=== PATIENT | female | born 1970 | race Caucasian/White ===

== ENCOUNTER 2022-04-17 17:14 | Observation (INO) | payer OTHER, SELFPAY ==
[2022-04-17] VITALS (9 sets, daily range): BP systolic 108–152; BP diastolic 54–66; PULSE 74–98; RESP 15–18; TEMP 35.9–36.9; O2SAT 99–100; BMI 24.3; BMI 24.9
--- NOTE | 2022-04-17 17:36 | EDS_ITS ---
HPI HPI - Female History of Present Illness Chief Complaint: Vag Bleeding Detail of Chief Complaint: For 3 to 4 weeks. Now pale and tired. Informant: patient and spouse/S.O. Bleeding Issue: Positive for Vaginal bleeding and Passing clots Onset: Weeks Context: Gradual Onset Timing: Intermittent Current Severity: Similar to period Associated Symptoms Associated Symptoms: Negative for Dysuria or Frequency Test: Positive P: 7 Ab: 0 Narrative Narrative: 51-year-old [facility] female no seen past medical history. G7, P7 Ab0. With 4 prior C-sections. States that she has been having heavier than normal vaginal bleeding for the last 3 to 4 weeks. Had an abnormal menstrual period before that and irregular periods or lack of periods for the last 3 months. Denies any discharge. No fever. She has never needed a blood transfusion. Prior similar symptoms: No Recent Illness/Hospitalization: No PFSH PFSH Medical History no medical history no medical history Home Medications NK 04/17/22 [History Last Taken Unknown] Allergy/AdvReac Type Severity Reaction Status Date / Time No Known Allergies Allergy Verified 04/17/22 17:15 Social History Smoking Status: Never smoker ROS ROS ED ROS Narrative Help. Tired. Intermittent dyspnea. Review of Systems ROS Unobtainable: Denies due to encephalopathy Constitutional Constitutional ED: Denies chills or fever(s) Eyes Eyes: Denies blurry vision ENT ENT ED: Denies ear pain Cardiovascular Cardiovascular: Denies chest pain Respiratory/Chest Respiratory/Chest: Denies cough or dyspnea Gastrointestinal Gastrointestinal: Denies abdominal pain Genitourinary Genitourinary ED: Denies dysuria or hematuria Musculoskeletal Musculoskeletal: Denies arthralgias Integumentary Denies abscess or Abrasions Neurologic Neurologic: Reports headache(s) Psychiatric Psychiatric: Denies anxiety Endocrine Endocrinology: Denies heat intolerance Hematologic/Lymphatic Hematologic/Lymphatic: Denies easy bleeding, easy bruising or lymphadenopathy Allergic/Immunologic Allergic/Immunologic ED: Denies mouth swelling or tongue swelling EXAM Physical Exam Narrative Exam Narrative: 51-year-old female. Vital signs stable afebrile. No acute distress. at bedside. She does clinically appear pale. H EENT exam unremarkable. Pelvic somatic. Moist. Neck nontender no lymphadenopathy. Lungs clear to auscultati on. Heart regular rhythm rate about 90 no murmur. Chest wall nontender. Abdomen soft nontender. Moving all 4 extremities. Skin pale. No petechiae or purpura. No rashes. Back nontender. Neurologic exam normal. Const Vital Signs: 04/17/22 17:15 Temperature 96.6 F L Temperature Source Temporal Pulse Rate 98 Respiratory Rate 18 Blood Pressure 152/65 H Blood Pressure Mean 94 Pulse Ox 100 Oxygen Delivery Method Room Air Positive well nourished and well developed; Negative for obese, cachectic, contractures or unkempt General Appearance ED: well developed and NAD; Negative for unkempt, cachectic, contractures or odor of alcohol detected Nutritional Appearance: Negative for cachectic or obese HEENT Reports moist mucous membranes; Denies dry mucous membranes Negative for trauma or tenderness Mouth ED: No dry mucous membranes Mouth: No dry mucous membranes Eyes PERRL and EOMs intact bilaterally General Eye ED: Yes pale conjunctiva; Negative for scleral icterus Neck no lymphadenopathy, supple and no JVD General: Negative for other Thyroid: Negative for tender Lymph Lymphatic: Negative for other Chest Wall inspection of chest normal and palpation of chest normal Chest: Negative for other Resp normal respiratory effort and clear to auscultation bilaterally Effort and Inspection: Negative for pain with movement Auscultation: Negative for rales, rhonchi or wheezes Cardio regular rate, regular rhythm, S1 normal heart sound, no murmurs and no JVD Rate: Negative for bradycardia or tachycardic Rhythm: Negative for abnormal rhythm GI normal to inspection, nondistended, normoactive bowel sounds, soft to palpation, non-tender, non-distended and no masses Auscultation: normoactive bowel sounds Palpation: Negative for tender or guarding Back/Spine no CVA tenderness General Back: Negative for CVA tenderness Cervical Spine: Negative for cervical spine tenderness Thoracic Spine / Upper Back: Negative for thoracic spinal tenderness Lumbar Spine / Lower Back: Negative for lumbar spinal tenderness Sacrum: Negative for other Extremity normal to inspection and full ROM General Extremety ED: Negative for edema or tenderness General Extremity: Negative for edema Neuro oriented x3, CN's II-XII intact bilaterally and no sensory deficits noted Sensorium / Orientation: alert, oriented to person, oriented to place and oriented to time; Negative for confused, lethargic or stuporous Motor Exam: strength 5/5 throughout Psych mental status grossly normal Appearance: Negative for unkempt Attitude: No agitated Speech: No other MDM MDM MDM Narrative Medical decision making narrative: 51-year-old female with vaginal bleeding for 3 to 4 weeks clinically looks pale. Concern for anemia due to vaginal bleeding. Blood count electrolytes to be obtained. IV placed. She will be typed and screened in case she is anemic and may need transfused. Repeat exam patient is doing well at 6:35 PM. I discussed all test results with her and her . They are comfortable with the admission. And a transfusi on. I spoke to TRANSCRIPT CLERK physician on-call Dr. Erendira Hernadez. Patient be transfused 2 units. She will meet the patient to her service. Most likely get an ultrasound and do further evaluation. Lab Data Attestation: I reviewed the patient's lab results. Lab results narrative: CBC shows a white count 3.7. H&H of 4.6 and 17.1. Significant anemia. Electrolytes unremarkable gap of 5 normal BUN of 12 creatinine 0.7. Glucose 103. Serum test negative. She has been typed and crossed for 4 u nits. She will be transfused 2 units. Labs: Laboratory Results - last 24 hr 04/17/22 04/17/22 04/17/22 17:45 17:45 17:45 WBC 3.7 L RBC 2.57 L Hgb 4.6 L* Hct 17.1 L MCV 66.5 L MCH 17.9 L MCHC 26.9 L RDW Std Deviation 44.1 H RDW Coeff of Melissa 18.3 H Plt Count 297 MPV 9.3 Sodium 140 Potassium 3.9 Chloride 110 H Carbon Dioxide 25.0 Anion Gap 5 BUN 12 Creatinine 0.78 Estim Creat Clear Calc 82.98 Est GFR (MDRD) Af Amer 100 Est GFR (MDRD) Non-Af 83 BUN/Creatinine Ratio 15.4 Glucose 103 Calcium 8.5 Serum , Qual NEGATIVE Crossmatch 04/17/22 17:45 WBC RBC Hgb Hct MCV MCH MCHC RDW Std Deviation RDW Coeff of Melissa Plt Count MPV Sodium Potassium Chloride Carbon Dioxide Anion Gap BUN Creatinine Estim Creat Clear Calc Est GFR (MDRD) Af Amer Est GFR (MDRD) Non-Af BUN/Creatinine Ratio Glucose Calcium Serum , Qual Crossmatch See Detail Discharge Plan Triage Chief Complaint: Vag Bleeding ED Provider: Marroquin,Ranulfo Dx/Rx/DC Orders Clinical Impression: Abnormal vaginal bleeding, Anemia requiring transfusions Prescriptions: No Action NK Primary Care Provider: Cristino White Referrals: Cristino White DO [Primary Care Provider] - Disposition Disposition: Acute Care Hospital [facility]
[2022-04-17 18:00] LABS: Hematocrit 17.1 % (37-47); Mean Corp Hgb Conc 26.9 g/dL (32-36); Mean Corpuscular Hgb 17.9 pg (27.0-32.0); Mean Corpuscular Volume 66.5 fL (81-99); Mean Platelet Vol. 9.3 fl (6.2-12.0); POSITIVE COUNT YES; Platelet Count 297 K/mm3 (150-450); RBC Distribution Width CV 18.3 % (11.6-14.6); RBC Distribution Width SD 44.1 fl (35.1-43.9); Red Blood Count 2.57 M/mm3 (4.2-5.4); White Blood Count 3.7 K/mm3 (4.4-11.0)
[2022-04-17 18:11] LABS: Internal QC Validated? YES +Cl - CLEAR BKGD; Pregnancy, Serum, hCG Quali. NEGATIVE Negative
[2022-04-17 18:15] LABS: Anion Gap 5 (5-15); BUN 12 mg/dL (7-18); BUN/Creat Ratio 15.4 RATIO (10-20); Calcium,Total 8.5 mg/dL (8.5-10.1); Chloride 110 mmol/L (98-107); Creatinine, Serum 0.78 mg/dL (0.55-1.02); EST Glomerular Filtration Rate 83 mL/min (>60); Est Glom Filt Rate - Afr Amer 100 mL/min (>60); Estimated Creatinine Clearance 82.98 ml/min; Glucose 103 mg/dL (74-106); Hemoglobin 4.6 g/dL (12.0-15.0); Potassium 3.9 mmol/L (3.5-5.1); Scan Indicated on CBC? Y/N YES- FLAGS NOTED; Sodium Level 140 mmol/L (136-145)
[2022-04-17 18:56] LABS: Differential Comment SCANNED
--- NOTE | 2022-04-17 21:18 | PCM.HP.OB ---
HPI - General General Date of Admission: 04/17/22 Date of Service: 04/17/22 Chief Complaint: vaginal bleeding HPI Narrative LAUREN MEZA, is a 51 F who presents to the ER with vaginal bleeding. 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 She began having irregular menstrual cycles over the last 6 to 12 months. Over the last 1 month she noted daily heavy bleeding. 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 She states what brought her into the ER is that her daughter came over to visit carlos noticed that she was pale, and therefore instructed her to go to the ER. She denies any lightheadedness or dizziness. She recently has had off-and-on headaches. She also notes occasional shortness of breath on exertion. No chest pain or leg pain. Some cramping but no abdominal or pelvic pain. She is unsure about Pap smear history. She denies a history of prior gynecologic surgery. She states she has had 4 sections and 3 vaginal deliveries. She denies a history of uterine fibroids or polyps. PFSH PFSH Medical History no medical history Home Medications NK 04/17/22 [History Last Taken Unknown] Allergy/AdvReac Type Severity Reaction Status Date / Time No Known Allergies Allergy Verified 04/17/22 19:54 Surgical History (Updated 04/17/22 @ 19:54 by Evelyn Vines) Hx of cholecystectomy Social History Smoking Status: Never smoker Vital Signs Vital Signs Vital Signs: 04/17/22 17:15 04/17/22 20:17 04/17/22 20:31 Temperature 96.6 F L 98.4 F 98.4 F Temperature Source Temporal Oral Oral Pulse Rate 98 78 78 Respiratory Rate 18 16 16 Blood Pressure 152/65 H 117/66 117/66 Blood Pressure Mean 94 83 83 Blood Pressure Source Monitor Monitor Blood Pressure Position Semi-Fowlers Semi-Fowlers Blood Pressure Location Left Arm Left Arm Pulse Ox 100 100 100 Oxygen Delivery Method Room Air Room Air Room Air 04/17/22 20:46 Temperature 98.0 F Temperature Source Oral Pulse Rate 76 Respiratory Rate 15 Blood Pressure 120/65 Blood Pressure Mean 83 Blood Pressure Source Monitor Blood Pressure Position Supine Blood Pressure Location Left Arm Pulse Ox 100 Oxygen Delivery Method Room Air Weight Weight: 156 lb 15.506 oz Body Mass Index (BMI) 24.9 Physical Exam Const alert and no apparent distress Constitutional Narrative: Pale General Appearance: comfortable HEENT normocephalic Resp normal respiratory effort GI soft to palpation, non-tender and non-distended GI Narrative: Uterus palpated to be enlarged and about 17-18 week sized Narrative: Scant dark red blood on pad and no active bleeding Labs Labs Labs: Blood Type A NEGATIVE Antibody Screen NEGATIVE Hct 17.1 % (37-47) L Hgb 4.6 g/dL (12.0-15.0) L* Assessment & Plan (1) Abnormal vaginal bleeding: PLAN: Patient presented to the ER with a h/o or irregular bleeding over last 6-12 months, with daily bleeding for 1 month. 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 What brought her into the ER was her daughter noticed she was pale. Hgb ~4 on admission. She is HDS and denies lightheadedness or dizziness. Suspect this vaginal bleeding has been long standing given her history and exam today. Bleeding is minimal on exam. Vitals are WNL. I do not feel emergent surgery or intervention is necessary at this time as she is stable. 2 units PRBC's started. Will make NPO after midnight. Pelvic US ordered. Discussed likely perimenopause and possible fibroid uterus given enlarged uterus. Discussed possible need for hysteroscopy D&C tomorrow vs in office Endosee and EMB. Will repeat blood work in the morning. Start oral progesterone taper until we have a terminal makeup operator plan. (2) Anemia requiring transfusions:
[2022-04-18] VITALS (14 sets, daily range): BP systolic 107–122; BP diastolic 54–74; PULSE 65–81; RESP 14–18; TEMP 36.6–37.4; O2SAT 97–100; BMI 25.0
[2022-04-18] MEDS: Lactated Ringers 1,000 ML 75 ML IV ×2 (00:21→13:27)
--- NOTE | 2022-04-18 05:00 | US_ITS ---
EXAM: US PELVIS TRANSABDOMINAL, COMPLETE CLINICAL INDICATION: menorrhagia, acute loss anemia TECHNIQUE: Transabdominal pelvic ultrasound was performed with grayscale and color Doppler imaging. This report was created using KeyView report Moku technology. COMPARISON: None. FINDINGS: UTERUS/CERVIX: Uterus is enlarged measuring 14.9 x 9.4 x 6.8 cm. Several nodular lesions within the uterus noted measuring up to 3.6 cm in diameter consistent with multiple fibroids. Endometrial thickness is 2 cm which is abnormal. RIGHT OVARY: Right ovary measures 4.4 x 4.1 x 2.8 cm and contains a 3.6 cm cyst. Blood flow is present in the right ovary. LEFT OVARY: Left ovary measures 4.6 x 3.6 x 2.5 cm and contains a 3.3 cm cyst. Blood flow is present in the left ovary. FREE FLUID: None. BLADDER: Unremarkable as visualized. Wall is normal thickness for degree of distention. US/Pelvic (Non ) IMPRESSION: 1. Fibroid uterus. Thickened endometrium which will need further follow-up to exclude underlying endometrial pathology. 2. Bilateral ovarian cysts which are likely physiologic in nature. Electronically Signed: Julio Shields MD at 10:14 EST ,
[2022-04-18 06:18] LABS: Absolute Lymphocyte Count 1.18 X10^3/uL (0.83-4.51); Absolute Neutrophil Count 2.3 X10^3/uL (2.0-7.7); Basophil# 0.03 X10^3/uL; Basophil% 0.8 % (0-1); Eosinophil# 0.06 X10^3/uL; Eosinophils% 1.5 % (0-5); Hematocrit 22.9 % (37-47); Hemoglobin 6.7 g/dL (12.0-15.0); Lymphocyte # 1.18 X10^3/ul (0.83-4.51); Lymphocyte % 29.6 % (19-41); Mean Corp Hgb Conc 29.3 g/dL (32-36); Mean Corpuscular Hgb 21.5 pg (27.0-32.0); Mean Corpuscular Volume 73.6 fL (81-99); Mean Platelet Vol. 9.5 fl (6.2-12.0); Monocyte# 0.38 X10^3/uL; Monocyte% 9.5 % (0-10); NRBC Flagged by Analyzer 0 % (0-5); Neutrophil # 2.33 X10^3/uL (2.7-7.7); Neutrophil % 58.3 % (47-70); POSITIVE MORPHOLOGY YES; Platelet Count 285 K/mm3 (150-450); RBC Distribution Width CV 24.5 % (11.6-14.6); RBC Distribution Width SD 63.7 fl (35.1-43.9); Red Blood Count 3.11 M/mm3 (4.2-5.4)
[2022-04-18 06:38] LABS: Differential Indicated SCAN CRITERIA MET
[2022-04-18 06:53] LABS: Differential Comment SCANNED; Polychromasia 1+
[2022-04-18 06:54] LABS: Anisocytosis 2+; Microcytosis 1+
[2022-04-18] MEDS: 0.9% Saline Lock 10 ML Syringe IV (08:40)
--- NOTE | 2022-04-18 11:02 | PN.OBGYN_ITS ---
Subjective Subjective Patient doing well. She feels better after 2 units of packed red blood cells. She felt like her bleeding slowed and was stopped overnight, but this morning she feels like her bleeding is picking up again. She denies chest pain, shortness of breath, lightheadedness, dizziness, leg pain. Objective Data Objective Data Vital Signs: Vital Signs Temp Pulse Resp BP Pulse Ox O2 Del Method 98.5 F 81 16 119/68 100 Room Air 04/18/22 10:01 04/18/22 10:04/18/22 10:01 04/18/22 10:04/18/22 10:04/18/22 10:01 Oxygen Delivery Method Room Air Weight: 156 lb 15.506 oz Body Mass Index (BMI) 24.9 Intake & Output: Intake and Output for Last 24 Hours 04/16/22 04/17/22 04/18/22 23:59 23:59 23:59 Intake Total 400 / 750 1393.75 / 1393.75 Output Total 2150 / 2150 Balance 400 / 50 -756.25 / -756.25 Lab / Micro Data Result Diagrams: 04/18/22 05:29 04/17/22 17:45 Labs: Laboratory Results - last 24 hr 04/17/22 17:45: WBC 3.7 L, RBC 2.57 L, Hgb 4.6 L*, Hct 17.1 L, MCV 66.5 L, MCH 17.9 L, MCHC 26.9 L, RDW Std Deviation 44.1 H, RDW Coeff of Melissa 18.3 H, Plt Count 297, MPV 9.3, Differential Comment SCANNED, Diff Path Review July04/17/22 17:45: Sodium 140, Potassium 3.9, Chloride 110 H, Carbon Dioxide 25.0, Anion Gap 5, BUN 12, Creatinine 0.78, Estim Creat Clear Calc 82.98, Est GFR (MDRD) Af Amer 100, Est GFR (MDRD) Non-Af 83, BUN/Creatinine Ratio 15.4, Glucose 103, Calcium 8.5 04/17/22 17:45: Blood Type A NEGATIVE, Antibody Screen NEGATIVE 04/17/22 17:45: Serum , Qual NEGATIVE 04/17/22 17:45: Crossmatch See Detail 04/18/22 05:29: WBC 4.0 L, RBC 3.11 L, Hgb 6.7 L, Hct 22.9 L, MCV 73.6 L D, MCH 21.5 L, MCHC 29.3 L D, RDW Std Deviation 63.7 H, RDW Coeff of Melissa 24.5 H, Plt Count 285, MPV 9.5, Immature Gran % (Auto) 0.300, Neut % (Auto) 58.3, Lymph % (Auto) 29.6, [place] % (Auto) 9.5, Eos % (Auto) 1.5, Baso % (Auto) 0.8, Absolute Neuts (auto) 2.3, Absolute Lymphs (auto) 1.18, Nucleated RBC % 0, Differential Comment SCANNED, Polychromasia 1+, Anisocytosis 2+, Microcytosis 1+ Radiography Diagnostic Testing: Radiology Impression Pelvis Ultrasound 04/18/22 05:00 IMPRESSION: 1. Fibroid uterus. Thickened endometrium which will need further follow-up to exclude underlying endometrial pathology. 2. Bilateral ovarian cysts which are likely physiologic in nature. Electronically Signed: Julio Shields MD at 10:14 EST , Physical Exam Const alert and no apparent distress General Appearance: comfortable HEENT normocephalic Resp normal respiratory effort GI soft to palpation, non-tender and non-distended Narrative: Filled 1 pad in about 45 min Assessment & Plan (1) Abnormal vaginal bleeding: PLAN: Patient's hemoglobin mary appropriately after 2 units of packed red blood cells. She feels improved. We will give an additional 1 unit of packed red blood cells given hemoglobin is still less than 7. Patient's bleeding initially improved on oral progesterone, however it is now picked up and she saturated pad within 45 minutes. She is hemodynamically stable. Discussed risk, benefits, alternatives to hysteroscopy, dilation curettage, progesterone IUD insertion. Discussed perimenopause and fibroid uterus. Pelvic ultrasound images and report reviewed with patient. She has a fibroid uterus and bilateral ovarian cysts. The ovarian cyst are benign appearing, but discussed will recommend repeat ultrasound in 6 to 12 weeks to reassess. The patient desires to proceed with surgery and consent was signed. (2) Anemia requiring transfusions: (3) Fibroid uterus: (4) Bilateral ovarian cysts: (5) Perimenopause:
--- NOTE | 2022-04-18 11:23 | EKG12_ITS ---
Test Reason : PREOP Blood Pressure : / mmHG Vent. Rate : 073 BPM Atrial Rate : 073 BPM P-R Int : 140 ms QRS Dur : 080 ms QT Int : 378 ms P-R-T Axes : -05 -09 055 degrees QTc Int : 416 ms Normal sinus rhythm Normal ECG No previous ECGs available Confirmed by MARLENE MAYA, [place] ([id number]), commissioning editor DOMINGO PICHARDO ([id number]) on 04/20/2022 11:35:52 AM Referred By: INA Confirmed By:GEORGIA ROSARIO MD
--- NOTE | 2022-04-18 12:10 | OP.PCM_ITS ---
Problems Associated Problem List Diagnoses (1) Perimenopause: (2) Fibroid uterus: (3) Abnormal vaginal bleeding: (4) Anemia requiring transfusions: Report of Operation Date of Procedure: 04/18/22 Pre-Operative Diagnosis: DUB, menorrhagia, anemia requiring blood transfusion, fibroid uterus, perimenopause Post-Operative Diagnosis: As above Surgery/Procedure Performed:: Hysteroscopy, D&C, Liletta progesterone IUD insertion Description of Surgical Findings:: Normal appearing but enlarged uterine cavity measuring 12 cm in length. Bilateral tubal ostia visualized. No polyps or submucosal fibroids. Large amount of endometrial tissue noted on D&C. Surgeon: Selina Hernadez assembler motor vehicle: None Type of Anesthesia: MAC Special Medications: Liletta IUD Specimen's removed: Endometrial curetting Cervical pap smear Drains: None Estimated Blood Loss (mL): < 50 cc Fluids Replaced: 1000 mL Description of Procedure: The patient was taken to the OR where MAC anesthesia was found to be adequate. She was prepped and draped in the dorsal lithotomy position using yellow fin stirrups. A weighted speculum was placed in the vagina to expose the cervix. The cervix was already dilated and the anterior lip of the cervix was grasped with a single tooth tenaculum. The hysteroscope was advanced to the fundus of the uterus and the cavity was distended with normal saline. Bilateral tubal ostia were visualized. No polyps or intrauterine lesions were identified. The hysteroscope was removed. A sharp curettage was performed for a large amount of endometrial tissue which was sent to pathology for review. The uterus sounded to 12 cm. The Liletta IUD was inserted into the uterine cavity at the fundus of the uterus in usual fashion, and the IUD strings were cut to 3 cm in length. A cervical pap smear was performed. All instruments were removed from the vagina. Bleeding hemostatic. Vaginal sweep was performed. The patient was taken to the recovery room in stable condition. Grafts/Implants Used: None Procedure Start Time: 12:42 Procedure Stop Time: 13:08 Complications None Admit VTE Documentation VTE Present on Admission: No VTE Mechan Device Prophylaxis: SCD's
[2022-04-18 12:16] LABS: International Normalized Ratio 1.1; Prothrombin Time (Protime)PT. 13.9 SECONDS (11.7-14.9)
--- NOTE | 2022-04-18 12:25 | EMB_PTH ---
PATIENT: LAUREN MEZA LOC: MS3 U#:[id number] AGE/SX: 51/F ROOM: MS319 RE04/17/[address]: Dr. Selina Hernadez DO : 1970 BED: 1 DIS: 04/18/2022 SPEC #: [id number] RECD: 04/19/22 08:07 STATUS: YOSELIN REErick #: [id number] BETH: 04/18/22 12:[address]: Selina Hernadez DEPT: SURGICAL PATHOLOGY RECD BY: Verona Kelly ENTERED: 04/19/22 11:24 SP TYPE: ENDOM BX/C POLA DR: Dr. Cristino White DO Tissues: Endometrium, NOS Procedures: Surgery Specimen Level IV HEADER OPERATION: Hysteroscopy, dilation and curettage, IUD insertion, pap test PRE-OP DIAGNOSIS: Perimenopause, fibroid uterus, abnormal vaginal bleeding, anemia TISSUE SUBMITTED: Endometrial curettings MICROSCOPIC DIAGNOSIS Endometrial curettings: Simple and focal complex endometrial hyperplasia without atypia. Fragments of benign squamous epithelium. SOFIE:rober 04/20/2022 MICROSCOPIC DESCRIPTION Slides are reviewed. GROSS DESCRIPTION Received in fixative is one container labeled with the patient's name and designated endometrial curettings. The specimen consists of multiple fragments of monique hemorrhagic soft tissue that in aggregate measure 7.5 x 3 x 1 cm. The specimen is totally submitted in eight cassettes. / SOFIE:rober 04/19/2022 TC:5 CPT: 09989
[2022-04-18] MEDS: Levonorgestrel IUD (Liletta) 1 EACH INTRA-UTER (12:30)
[2022-04-18] MEDS: Lidocaine 1% /Epi 1:100 (20ml) 20 ML Vial (12:42)
--- NOTE | 2022-04-18 16:08 | DCINST_ITS ---
Discharge Instructions Diet Discharge Diet: No restrictions Activity Discharge Activity: May Shower (Once you are more than 24 hours out from surgery) May resume sexual activity in: 1 week (No tampons, intercourse, soaking in water while you are having bleeding for 1-2 weeks) Weight Bearing Status: Weight bearing as tolerated Dressing / Incision Call your doctor if you observe: Fever of 101 or Higher, Coldness, Increased Pain, Numbness or Tingling, Change in Color, Inability to urinate, Inability to have a bowel movement, Using more than 1 pad per hour, Shortness of breath, Dizziness, Fainting spells, Swelling in the ankles, Chest pain, Increased palpitations (irregular heartbeat), Calf discomfort and Uncontrolled pain Follow Up Care Please Follow Up With: Selina Hernadez DO When: 1 week for follow up Test Results: Test results from this visit will be discussed in further detail at your follow- up appointment, if applicable. Discharge Plan Admission Admit Date/Time: 04/17/22 18:35 Primary Reason for Your Visit: vaginal bleeding Attending Provider: Selina Hernadez Primary Care Provider: Cristino White Instructions Patient Instructions: Dilation and Curettage Discharge Orders/Prescriptions Prescriptions: No Action NK Referrals / Follow Up: Cristino White DO [Primary Care Provider] - Disposition Disposition (needs filled in before D/C Order can be placed): Home, Self Care
[2022-04-20 09:51] LABS: Pathologist Review Reviewed
[2022-04-22 17:29] LABS: HPV APTIMA, High Risk Negative (Negative)
[2022-04-22 17:30] LABS: HPV Reflexed? YES, CHARGE PATIENT
== END 2022-04-18 19:20 | disposition home or self-care (01) ==
LOC: ED 18:36 → MS3 18:46
PROVIDERS: Anesthesiology; Admitting Provider Obstetrics & Gynecology; Emergency Provider Emergency Medicine; PCP Family Medicine; Visit Provider Obstetrics & Gynecology
PROC: 0UDB8ZZ Extraction of Endometrium, Via Natural or Artificial Opening Endoscopic (ICD-10-PCS; CPT 58558; principal; 2022-04-18 12:15)
DX: N92.4 Excessive bleeding in the premenopausal period (principal); N92.6 Irregular menstruation, unspecified; D64.9 Anemia, unspecified; R06.02 Shortness of breath; D25.9 Leiomyoma of uterus, unspecified; Z30.430 Encounter for insertion of intrauterine contraceptive device; N85.01 Benign endometrial hyperplasia
CPT/HCPCS: 58558; 58300; 00940; 36415; 36430; 76856; 80048; 84703; 85025; 85027; 85610; 86644; 86850; 86900; 86901; 86920; 86922; 87624; 88175; 88305; 93005; 96360; 96361; 99221; 99284; J7040; J7120; P9016; A4216; G0145; G0378; J2405

== ENCOUNTER → 2022-07-05 | Outpatient (CLI) | payer OTHER, SELFPAY ==
--- NOTE | 2022-07-05 09:08 | RAD_ITS ---
CLINICAL HISTORY: Female, 52 years old. Postsurgical pain PROCEDURE: Cystoscopy FLUOROSCOPY TIME (if supplied): (0:24) minutes/seconds, dosage of 10.58mGy, 6 images obtained 150 mL of contrast installed into the bladder in a retrograde fashion through Marvin catheter. Loulou Felipe installed the contrast into the bladder. TECHNIQUE: (All elements of maximal sterile barrier technique followed, including US elements as applicable) Contrast was instilled into the bladder in a retrograde manner via gravity. The bladder distends normally without evidence of filling defect. There is no evidence of bladder leak, no reflux of contrast into the distal ureters. RAD/Cystography min 3 Views IMPRESSION: Normal cystoscopy, no evidence of bladder leak or reflux of contrast into the distal ureters Electronically Signed: Max Chery MD at 10:03 EDT ,
== END | disposition home or self-care (01) ==
LOC: RAD 09:03
PROVIDERS: PCP Family Medicine; Referring Provider Urology; Visit Provider Urology
DX: S37.20XA Unspecified injury of bladder, initial encounter (principal); X58.XXXA Exposure to other specified factors, initial encounter; G89.18 Other acute postprocedural pain
CPT/HCPCS: 51600; 74430; Q9965